=== PATIENT | male | born 1995 | race Caucasian/White ===

== ENCOUNTER 2018-02-21 11:40 | Emergency (ER) | payer BC ==
[~2018-02-21] VITALS: Ht 182.9 cm; Wt 132.7 kg
[~2018-02-21 11:40] MED LIST: HYDROCHLOROTHIA25 MG PO
[2018-02-21 12:25] LABS: APPEARANCE SL.HAZY ((CLEAR)); BILIRUBIN NEGATIVE; BLOOD LARGE; COLOR YELLOW ((YELLOW)); GLUCOSE (STRIP) NEGATIVE; KETONES 5; LEUKOCYTES NEGATIVE; NITRITE NEGATIVE; PROTEIN (STRIP) 100; SPECIFIC GRAVITY 1.029 (1.000-1.030); UROBILINOGEN 0.2 MG/DL (0.2-1.0)
[2018-02-21 12:44] LABS: HEMATOCRIT 45.2 % (38.0-50.0); HEMOGLOBIN 15.8 G/DL (12.5-16.6); MCH 29.9 PG (29.0-34.0); MCV 85.6 FL (86-99); PLATELET COUNT 199 K/uL (156-360); RBC DIS.WIDTH-SD 37.5 % (39-53); RED BLOOD COUNT 5.28 M/uL (4.00-5.50); WHITE BLOOD COUNT 6.8 K/uL (4.1-10.2)
[2018-02-21 12:46] LABS: BACTERIA RARE /HPF; EPITHELIAL CELLS RARE /HPF; HYALINE CASTS 15-20 /LPF; MUCUS 1+ /LPF; RED BLOOD CELLS TNTC /HPF (0-5); UCUL ADDED? YES; WHITE BLOOD CELLS 0-5 /HPF (0-5)
[2018-02-21 12:50] LABS: ALBUMIN 4.6 g/dL (3.2-4.8)
[2018-02-21 12:51] LABS: CHLORIDE 105 mEq/L (99-109); POTASSIUM 4.1 mEq/L (3.7-5.4); SODIUM 140 mEq/L (136-147)
[2018-02-21 12:53] LABS: GLUCOSE 92 mg/dL (70-99); TOTAL PROTEIN 7.7 g/dL (6.4-8.3)
[2018-02-21] MEDS ORDERED: PERCOCET 5/31 TABLET PO (12:54)
[2018-02-21] MEDS ORDERED: FLOMAX0.4 MG PO (12:54)
[2018-02-21] MEDS ORDERED: ZOFRAN4 MG PO (12:54)
[2018-02-21 12:55] LABS: TOTAL BILIRUBIN 0.7 mg/dL (0.0-1.0)
[2018-02-21 12:56] LABS: ALKALINE PHOSPHATASE 116 IU/L (3-129)
[2018-02-21 12:57] LABS: CREATININE 1.2 mg/dL (0.6-1.3); GFR ESTIMATE (CALCULATED) > 59 mL/min/ (58.99-99999)
[2018-02-21 12:58] LABS: AST (GOT) 31 IU/L (2-34); UREA NITROGEN (BUN) 16 mg/dL (9-23)
[2018-02-21 12:59] LABS: ALT (GPT) 25 IU/L (3-49)
[2018-02-21 13:31] VITALS: BP 103/78
== END 2018-02-21 13:41 | disposition home or self-care (01) ==
LOC: EME 11:40
PROVIDERS: Physician Assistant
DX: N20.1 Calculus of ureter (principal); Z87.442 Personal history of urinary calculi; I10 Essential (primary) hypertension
CPT/HCPCS: 74176; 80053; 81003; 85027; 87086; 99281; 99284